=== PATIENT | male | born 1940 | race Caucasian/White ===

== ENCOUNTER 2016-10-11 17:13 | Outpatient (CLI) | payer OTHER, MEDICARE ==
--- NOTE | 2016-10-11 17:39 | DIAGNOSTIC IMAGING REPORT ---
PROCEDURE: XR CHEST 2 VIEW INDICATION: SHORTNESS OF BREATH TECHNIQUE: PA and lateral views. COMPARISON: Compared to chest x-ray and 04/14/2016. FINDINGS: Pulmonary hyperexpansion and chronic obstructive pulmonary disease. Lungs are clear. Heart and mediastinum are of normal size. Mild degenerative change of the thoracic spine. IMPRESSION: 1. Chronic obstructive pulmonary disease. 2. Otherwise negative chest.
== END 2016-10-11 23:00 ==
LOC: XR SRH 17:13
DX: J44.9 Chronic obstructive pulmonary disease, unspecified (principal)
CPT/HCPCS: 90074; 90100; 91046; 91320; 91556; 93140; 95059

== ENCOUNTER 2016-10-15 11:34 | Outpatient (CLI) | payer OTHER, MEDICARE ==
--- NOTE | 2016-10-15 13:22 | DIAGNOSTIC IMAGING REPORT ---
PROCEDURE: CTA THORAX WITH CONTRAST INDICATION: SOB;ELEVATED D-DIMER TECHNIQUE: 85 ml of Isovue 370 was injected intravenously and axial images were obtained of the entire thorax with 3D sagittal and coronal MIP reconstructions. COMPARISON: Chest x-ray 10/11/2016. FINDINGS: No evidence of pulmonary emboli. There is no aortic dissection or aneurysm. Hyperinflation but lungs are clear. Bronchitis with bronchial wall thickening. No adenopathy or effusion. Normal heart size. Right renal cyst. Small hiatal hernia. Moderate degenerative changes of the spine. IMPRESSION: 1. No evidence of pulmonary emboli, aortic dissection or aneurysm 2. COPD and bronchitis 3. Small hiatal hernia 4. Results discussed with [facility]
== END 2016-10-15 23:00 ==
LOC: CT SRH 11:34
DX: J44.9 Chronic obstructive pulmonary disease, unspecified (principal); K44.9 Diaphragmatic hernia without obstruction or gangrene